=== PATIENT | female | born 1955 | race Caucasian/White ===

== ENCOUNTER 2018-03-23 18:09 | Observation (INO) | payer MEDICARE, BC ==
[2018-03-23] MEDS ORDERED: Aspirin 81 mg CHEW TAB* 81 MG TAB.CHEW PO ONE (18:51)
[2018-03-23] MEDS ORDERED: Nitroglycerin TAB 0.4 MG* 0.4 MG TAB SL ONE (18:51)
[2018-03-23 18:54] LABS: ABS Basophils 0 10^3/ul (0-0.2); ABS Eosinophils 0.1 10^3/ul (0-0.6); ABS Lymphocytes 1.9 10^3/ul (1.0-4.8); ABS Monocytes 0.5 10^3/ul (0-0.8); ABS Neutrophils 3.8 10^3/ul (1.5-7.7); ABS Nucleated RBC 0 10^3/ul; Hematocrit 40 % (35-47); Hemoglobin 13.6 g/dl (12.0-16.0); Lymphocyte % 29.6 % (25-47); Mean Corpuscular HGB Conc 35 g/dl (31-36); Mean Corpuscular Hemoglobin 33 pg (27-31); Mean Corpuscular Volume 96 fL (80-97); Mean Platelet Volume 9.5 um3 (7.4-10.4); Nucleated Red Blood Cells % 0.2; Platelet Count 174 10^3/ul (150-450); Red Blood Count 4.12 10^6/ul (4.0-5.4); Red Cell Distribution Width 13 % (10.5-15); White Blood Count 6.3 10^3/ul (3.5-10.8)
[2018-03-23 19:17] LABS: EGFR Non-African American 69.9 (>60)
--- NOTE | 2018-03-23 19:21 | RAD ---
Indication: Chest pain shortness of breath, back pain, headache. Comparison: June 27, 2014 Technique: Upright AP 1904 hours Report: Clear lungs and pleural spaces. Negative for pneumothorax. The heart, pulmonary vasculature, and mediastinal contours are unremarkable. Negative for free air beneath the diaphragm. Unremarkable osseous structures and soft tissue contours. IMPRESSION: No evidence for acute intrathoracic disease.
[2018-03-23] MEDS ORDERED: Nitroglycerin 2% OINT* 1 GM PAK TOPICAL ONE (20:11)
[2018-03-23] MEDS ORDERED: Ondansetron INJ* 2 MG/ML VIAL IV PRN (20:56)
[2018-03-23] MEDS ORDERED: Ondansetron ODT TAB* 4 MG PO PRN (20:56)
[2018-03-23] MEDS ORDERED: Acetaminophen TAB* 325 MG PO PRN (20:56)
[2018-03-23] MEDS ORDERED: traZODone TAB* 100 MG PO SCH (21:00)
[2018-03-23] MEDS ORDERED: NS 0.9% 1000 ML* 1,000 ML IV SCH (21:00)
[2018-03-23] MEDS: Al Hydrox/Mg Hydrox/Simet LIQ* 30 ML UDC PO ONE ×2 (22:06→22:16)
[2018-03-23] MEDS: Lidocaine 2% VISCOUS* 15 ML UDC PO ONE ×2 (22:06→22:16)
[2018-03-23] MEDS: Pregabalin CAP(*) 50 MG PO SCH (22:16)
--- NOTE | 2018-03-23 22:25 | HP ---
CC: Dr. Carrero * HISTORY AND PHYSICAL: DATE OF ADMISSION: 03/23/18 PRIMARY CARE PROVIDER: Dr. Carrero. ATTENDING PHYSICIAN WHILE IN THE HOSPITAL: Kellie Andrade DO *(report dictated by Marlon Caceres NP). CHIEF COMPLAINT: Chest pain. HISTORY OF PRESENT ILLNESS: Ms. Gorman is a 62-year-old female patient who carries a history of fibromyalgia and depression along with tachycardia, who comes into the ER today stating that she had an episode in the last couple of days of intermittent chest discomfort described as pressure, tightness in the chest, also described as indigestion and burning. She states she just felt full in the last couple, particularly all day today. She had intermittent chest pain, it was non- exertional. It was described as epigastric discomfort and indigestion. She states that she was concerned that the discomfort was not getting any better. She did admit to having associated shortness of breath and nausea with this. No diaphoresis. She denied having any lower abdominal pain. No fevers or chills. No recent travel. No leg tenderness or swelling. No URI type symptoms. No recent coughing. She decided to come into the emergency department today because the pain was persisting. She was evaluated in the ED, her pain went away with nitro and aspirin and because of these findings, we were asked to evaluate for admission. PAST MEDICAL HISTORY: Significant for: 1. Fibromyalgia. 2. Tachycardia. PAST SURGICAL HISTORY: 1. The patient has had a . 2. Hysterectomy. 3. Cardiac ablation. HOME MEDICATIONS: According to her recall includes: 1. Lyrica 150 mg p.o. b.i.d. 2. Multivitamin 1 tablet daily. 3. Estradiol 1 mg daily. 4. Calcium carbonate 1 tablet p.o. daily. 5. Vitamin D 1 capsule p.o. daily. 6. Trazodone 100 mg p.o. at bedtime. 7. Zoloft 150 mg p.o. daily. ALLERGIES TO MEDICATIONS: Include no known drug allergies. FAMILY HISTORY: Mother is still alive and is healthy. Father had a history of stroke. SOCIAL HISTORY: She does not smoke. She does not drink. She states her surrogate decision maker is her . REVIEW OF SYSTEMS: There is no documented fever. She denied having any significant weight. There is no double vision. There is no area of discharge. Denies having any rhinorrhea. There is no sore throat. No thyroid enlargement. There is chest pain per my HPI. There was no orthopnea. There was no nocturnal dyspnea. There was no abdominal pain. She does have epigastric pain. No dysuria. No frequency. No seizure. No loss of consciousness. No pruritus and no skin ulceration. Review of 14 systems completed, all others negative. PHYSICAL EXAMINATION GENERAL: At this time, Ms. Gorman is a 62-year-old male patient. She is sitting in the ED stretcher. She does not appear to be in any acute distress. VITAL SIGNS: Blood pressure 139/73, pulse 66, respirations 16, O2 sat 99%, temperature 97.1. HEENT: Head: Atraumatic, normocephalic. Eyes: EOMs intact. Sclerae anicteric and not pale. Throat: Oral mucosa appears to be moist. No oropharyngeal erythema. NECK: Supple. LUNGS: Clear to auscultation bilaterally. No wheezes, rales or rhonchi. HEART: Sounds S1, S2. Regular rate and rhythm. No murmurs, rubs or gallops. ABDOMEN: Soft, it was flat, nontender. Bowel sounds were present. EXTREMITIES: Pulses were 2+ throughout. She is moving all 4 extremities with 5 /5 strength. NEUROLOGIC: The patient is awake, she is alert, she is oriented x3. Tongue midline. Senior [address] Engineer were equal, had no gross focal deficits. SKIN: Intact. DIAGNOSTIC STUDIES/LAB DATA: WBC 6.3, RBC of 4.12, hemoglobin of 13.6, hematocrit of 40, platelet count of 174. D-dimer less than 200. Sodium was 137 , potassium was 3.6, chloride of 103, bicarb of 26, BUN 21, creatinine of 0.83, glucose 159, lactic 1.6, calcium 9.1. Total bili 0.4, AST 15, ALT 12, alk phos 64. Troponin of 0, albumin is 3.8. The patient did have a chest x-ray obtained today, which revealed no active cardiopulmonary disease. There was an EKG obtained today, which showed a normal sinus rhythm, rate of 69 , no ST elevations or T-wave inversions. Old medical records reviewed. ASSESSMENT AND PLAN: Ms. Gorman is a 62-year-old female patient coming into the ED today with complaints of chest discomfort. We are asked to evaluate for admission. She will be admitted under observation status: 1. Chest pain. At this point, she does have some atypical tendencies, but I am concerned that it is persisting, it is coming and going, so my plan is to go ahead and admit her, cycle her troponins. We will get place her on telemetry. Continue baby aspirin, check stress test, echo, lipid A1c in the morning and continue to follow. I am also going to give her GI cocktail. 2. Fibromyalgia. Continue meds as prescribed. 3. History of tachycardia. She is in the sinus rhythm now. We will monitor. She will be on telemetry. 4. Depression. Continue meds as prescribed. 5. DVT prophylaxis. I have ordered SCDs. 6. Fluids, electrolytes, nutrition. Heart healthy diet and n.p.o. after midnight. 7. Code status. Full code. TIME SPENT: Time spent on admission 60 minutes, greater than half of the time was spent [id number] with the patient obtaining my history and physical, other half time spent going over the plan of care with the patient and implementing plan of care. I did discuss the plan of care with my attending, Dr. Andrade, she is in agreement. MARLON CACERES, SANDY [id number]/[facility] #: [id number] MTDD
[2018-03-24 06:21] LABS: ABS Basophils 0 10^3/ul (0-0.2); ABS Eosinophils 0.1 10^3/ul (0-0.6); ABS Lymphocytes 2.3 10^3/ul (1.0-4.8); ABS Monocytes 0.4 10^3/ul (0-0.8); ABS Neutrophils 2.4 10^3/ul (1.5-7.7); ABS Nucleated RBC 0 10^3/ul; Eosinophil % 2.3 % (0-6); Hematocrit 36 % (35-47); Hemoglobin 12.3 g/dl (12.0-16.0); Lymphocyte % 43.7 % (25-47); Mean Corpuscular HGB Conc 34 g/dl (31-36); Mean Corpuscular Hemoglobin 33 pg (27-31); Mean Corpuscular Volume 95 fL (80-97); Mean Platelet Volume 9.2 um3 (7.4-10.4); Nucleated Red Blood Cells % 0.1; Platelet Count 169 10^3/ul (150-450); Red Blood Count 3.73 10^6/ul (4.0-5.4); Red Cell Distribution Width 13 % (10.5-15); White Blood Count 5.2 10^3/ul (3.5-10.8)
[2018-03-24 06:36] LABS: EGFR Non-African American 71.9 (>60)
[2018-03-24] MEDS ORDERED: Aspirin 81 mg CHEW TAB* 81 MG TAB.CHEW PO SCH (09:00)
[2018-03-24] MEDS ORDERED: Sertraline* 50 MG TAB PO SCH (09:00)
[2018-03-24 09:39] VITALS: BP 121/64
[2018-03-24] MEDS ORDERED: Regadenoson* 0.4 MG/5 ML SYRINGE ONE (09:50)
--- NOTE | 2018-03-24 10:06 | RAD ---
Edited for charges. Indication: Chest pain. Myocardial perfusion scan was performed less than one day protocol. 10.6 mCi of technetium 99m tetrofosmin was injected for rest portion of the study. Pharmacological stress was applied and 25.7 mCi of technetium 99m tetrofosmin was then injected for the stress portion of the changes. There is homogeneous distribution of the radiotracer throughout the left ventricle. No definite reversible perfusion defects are identified. The ejection fraction at stress is 68%. Evaluation of wall motion demonstrates no evidence of focal wall motion abnormality. IMPRESSION: No evidence of fixed or reversible perfusion defect is identified. ASSESSMENT: Low risk Based on imaging criteria from ACC/AHA 2002 Guideline Update for the Management of Patients With Chronic Stable Angina Table 23. Noninvasive Risk Stratification. MTDD
[2018-03-24] MEDS: Pregabalin CAP(*) 50 MG PO SCH (11:31)
--- NOTE | 2018-03-24 13:22 | DS ---
CC: Dr. Carrero * DISCHARGE SUMMARY: DATE OF ADMISSION: 03/23/18 DATE OF DISCHARGE: 03/24/18 PROVIDER: Elizabeth Paul NP ATTENDING PHYSICIAN: Dr. Simental * (report dictated by Elizabeth Paul NP). PRIMARY CARE PROVIDER: Dr. Carrero. DISCHARGE DIAGNOSIS: Chest pain, unknown etiology. SECONDARY DIAGNOSES: 1. Fibromyalgia. 2. History of tachycardia versus atrial fibrillation, status post ablation approximately 20 to 25 years ago. DISCHARGE MEDICATIONS: 1. Lyrica 150 mg p.o. b.i.d. 2. Multivitamin 1 tab p.o. daily. 3. Estradiol 1 mg p.o. daily. 4. Calcium carbonate 1 tablet p.o. daily. 5. Vitamin D 1 capsule p.o. daily. 6. Trazodone 100 mg p.o. at bedtime. 7. Zoloft 150 mg p.o. daily. New medications on discharge: Aspirin 81 mg p.o. daily. HISTORY OF PRESENT ILLNESS AND HOSPITAL COURSE: Please see history and physical by Austin Caceres NP, for full admission details, but in summary, this is 62-year-old female with a past medical history of AFib versus tachycardia, status post ablation approximately 20 to 25 years ago; fibromyalgia; depression , who presented to the emergency department yesterday on 03/23/18 with complaints of chest discomfort. The patient reported intermittent chest discomfort described as pressure and tightness of the chest with indigestion and burping over the past couple of days. The patient reports that it is non- exertional and it happens at rest. She reports that she exercises regularly and has not had any chest pain during exertion. She does have a significant past medical history for tobacco abuse for approximately 10 years smoking 3 packs of cigarettes a day. It is also noted that she is on estradiol. No family history of cardiac disease. The patient was admitted to the hospitalist service and had 3 negative troponins, all of 0.00. No known EKG changes. The patient was supposed to undergo an exercise stress test this morning; however, she was converted to a chemical stress test as she did not have appropriate shoes for the exercise portion. The test was performed by tavern keeper, Dr. Donovan, who reported he did note a transient T-wave change with administration of regadenoson noting there are multiple transient T-wave inversions noted in V3 , V4, subtly in V5, reporting that the changes reverted back to baseline within 3 minutes after the regadenoson administration. The cardiac nuclear portion showed no evidence of fixed or irreversible perfusion defect was identified, placing her at low risk based on the imaging criteria from ACC/AHA 2002 guideline. I did speak with Dr. Donovan, who stated that it is unclear if the transient T-wave changes were significant due to this chemical portion and she would have been better served with an exercise stress test. However, the patient does exercise on a regular basis and has no exertional chest pain. Recommendation was to possibly start low-dose aspirin and low-dose beta breanne and the patient can follow up with her primary. If she were to experience any further concerning symptoms, she should have a followup with tavern keeper and possibly undergo a cardiac catheterization at that time; however, it is not warranted at this time. I did discuss with the patient about starting a daily baby aspirin, which she is in agreement to; however, she reports that she does not tolerate beta blockers and does not want to start a low-dose beta breanne at this time if it is just for prevention. The plan will be to follow up with her primary care doctor, Dr. Carrero, this week and it will be determined if she should follow up with the [facility] tavern keeper as an outpatient. I discussed with the patient if she has any further concerning symptoms, she will return to emergency department. She has been ambulating around the unit walking briskly in the hallways without any further symptoms and she is stable for discharge to home. REVIEW OF SYSTEMS: A 14-point review of systems was performed. All the pertinent positives and negatives are mentioned in the history of present illness. Otherwise are negative. At this point, the patient has no complaints. PHYSICAL EXAMINATION: Vital Signs: Temperature 97.6, heart rate 57, respirations 16, O2 sat 97% on room air, blood pressure 121/64. General Appearance: A 62-year- old obese female, standing up in her room, alert and oriented x3, in no acute distress, very pleasant, good historian. HEENT: Head is normocephalic, atraumatic. Neck is supple. No JVD noted. Cardiac: S1 and S2. Regular rate and rhythm. No murmurs, rubs, or gallops appreciated. No lower extremity edema noted. Lungs: Clear to auscultation bilaterally. Good aeration throughout. Abdomen: Soft, obese, nontender. Normal bowel sounds throughout. Extremities: Moves all extremities. Strength is 5/5 throughout. Steady gait. Neuro: Alert and oriented x3. No focal deficits noted. DISCHARGE PLAN: The patient will be discharged to home. She is to follow up with her primary care provider, Dr. Carrero, this week. If she has any further concerning symptoms, she is to return to the emergency department. She is instructed to start a daily baby aspirin 81 mg. Again, it was suggested the patient start a low-dose beta breanne, but she at this time is refusing until further followup with her primary care provider and/or outpatient Cardiology. She has been symptom free and is stable for discharge to home. The patient's hemoglobin A1c is 5.6, she did have a fasting lipid profile this morning with triglycerides of 78, cholesterol of 194, LDL 132, and HDL 46. I did discuss with the patient she should follow up with primary care provider as other than her LDL and borderline cholesterol, it is possible with diet changes and continued exercise that these numbers could improve; however, if not, she should consider starting a statin. As well, I do note that she is on estradiol oral and did discuss with her the fact that estradiol patch reduces the cardiac and stroke risk as it avoids the first pass in the liver. I encouraged her to discuss this with her primary care provider. TIME SPENT: Approximately 60 minutes was spent on this discharge. ELIZABETH PAUL NP [id number]/[facility] #: [id number] ARELIS
== END 2018-03-24 13:30 | disposition home or self-care (01) ==
LOC: ED 18:09 → MEDTELE 20:54
PROVIDERS: ADMIT Hospitalist; ATTEND Student in an Organized Health Care Education/Training Program
DX: R07.9 Chest pain, unspecified (principal); M79.7 Fibromyalgia; R00.0 Tachycardia, unspecified; Z90.710 Acquired absence of both cervix and uterus
CPT/HCPCS: 36415; 71045; 78452; 80048; 80053; 80061; 83036; 83605; 84484; 85025; 85379; 93005; 93017; 96374; 99284; A9270-GY; A9502; J2785

== ENCOUNTER 2019-05-14 21:43 | Emergency (ER) | payer MEDICARE, BC ==
[2019-05-14] MEDS ORDERED: oxyCODONE/Acetamin 5/325 MG* TAB PO ONE (22:39)
[2019-05-14] MEDS ORDERED: Ketorolac INJ* 30 MG/ML 1 ML VIAL IM ONE (22:39)
[2019-05-14 23:03] LABS: ABS Eosinophils 0.1 10^3/ul (0-0.6); ABS Lymphocytes 1.4 10^3/ul (1.0-4.8); ABS Monocytes 0.7 10^3/ul (0-0.8); ABS Neutrophils 7.6 10^3/ul (1.5-7.7); Eosinophil % 0.8 %; Hematocrit 38 % (35-47); Hemoglobin 13.4 g/dL (12.0-16.0); Lymphocyte % 13.9 %; Mean Corpuscular HGB Conc 35 g/dL (31-36); Mean Corpuscular Hemoglobin 33 pg (27-31); Mean Corpuscular Volume 95 fL (80-97); Mean Platelet Volume 8.8 fL (7.4-10.4); Platelet Count 193 10^3/uL (150-450); Red Blood Count 4.05 10^6 /uL (3.70-4.87); Red Cell Distribution Width 13 % (10-15); White Blood Count 9.7 10^3/uL (3.5-10.8)
[2019-05-14 23:21] LABS: Albumin/Globulin Ratio 1.2 (1-3); BUN/Creatinine Ratio 16.5 (8-20); C Reactive Protein 109.77 mg/L (<8.01); Calcium 9.5 mg/dL (8.6-10.3); EGFR Non-African American 67.8 (>60); Globulin 3.4 g/dL (2-4); Magnesium 1.9 mg/dL (1.9-2.7); Potassium 4.3 mmol/L (3.5-5.0); Total Bilirubin 0.5 mg/dL (0.2-1.0); Total Protein 7.4 g/dL (6.4-8.9)
--- NOTE | 2019-05-14 23:21 | ED ---
Lower Extremity - HPI Summary HPI Summary: 63-year-old female presents with right thigh pain for the past week. She states that a week ago she was going a stress test and she started having increasing pain in her right thigh. She is able to complete the stress test and has no cardiac issues but now is having right thigh pain. She states that she is unable to place weight on the area. States pain has been taking worse. No numbness or tingling. No weakness. No back pain. No chest pain or shortness breath. - History of Current Complaint Chief Complaint: EDExtremityLower Stated Complaint: LEG PAIN PER EMS Time Seen by Provider: 05/14/19 22:25 Pain Intensity: 10 - Allergies/Home Medications Allergies/Adverse Reactions: Allergies Allergy/AdvReac Type Severity Reaction Status Date / Time No Known Allergies Allergy Verified 06/27/14 14:34 PMH/Surg Hx/FS Hx/Imm Hx Endocrine/Hematology History: Denies: Hx Diabetes Cardiovascular History: Reports: Hx Angina Denies: Hx Hypertension, Hx Pacemaker/ICD Comment Only: Other Cardiovascular Problems/Disorders - Ablation r/t tachycardia Respiratory History: Denies: Hx Asthma History: Denies: Hx Renal Disease Musculoskeletal History: Reports: Hx Fibromyalgia, Other Musculoskeletal History - Fibromyalgia Sensory History: Reports: Hx Contacts or Glasses Denies: Hx Hearing Aid Opthamlomology History: Reports: Hx Contacts or Glasses Psychiatric History: Denies: Hx Panic Disorder - Surgical History Surgery Procedure, Year, and Place: C SECTION X 3; HEART ABLATION; HYSTERECTOMY ALL WERE AT LEAST 15 YRS AGO - Immunization History Immunizations Up to Date: Yes Infectious Disease History: No Infectious Disease History: Denies: Traveled Outside the [place] in Last 30 Days - Family History Known Family History: Negative: Cardiac Disease - Social History Alcohol Use: None Substance Use Type: Reports: None Smoking Status (MU): Former Smoker Type: Cigarettes Amount Used/How Often: 3 PACK DAILY Length of Time of Smoking/Using Tobacco: 12 YEARS Have You Smoked in the Last Year: No Review of Systems Negative: Fever Negative: Chest Pain Negative: Shortness Of Breath Positive: Myalgia - right thigh pain All Other Systems Reviewed And Are Negative: Yes Physical Exam Triage Information Reviewed: Yes Vital Signs On Initial Exam: Initial Vitals Temp Pulse Resp BP Pulse Ox 99.1 F 81 18 147/79 96 05/14/19 22:08 05/14/19 22:08 05/14/19 22:08 05/14/19 22:08 05/14/19 22:08 Vital Signs Reviewed: Yes Appearance: Positive: Well-Appearing Skin: Positive: Warm, Dry Head/Face: Positive: Normal Head/Face Inspection Eyes: Positive: Normal, Conjunctiva Clear ENT: Positive: Pharynx normal Respiratory/Lung Sounds: Positive: Clear to Auscultation, Breath Sounds Present Cardiovascular: Positive: Normal, RRR Musculoskeletal: Positive: Limited @ - right leg, Other - tenderness right thigh especially lateral aspect of thigh, nontender hip, good pulses, sensation grossly intact, soft compartments Neurological: Positive: Normal Psychiatric: Positive: Normal Diagnostics - Vital Signs Vital Signs Temp Pulse Resp BP Pulse Ox 05/14/19 22:58 20 05/14/19 22:08 99.1 F 81 18 147/79 96 - Laboratory Lab Results: Lab Results 05/14/19 Range/Units 22:55 WBC 9.7 (3.5-10.8) 10^3/uL RBC 4.05 (3.70-4.87) 10^6 /uL Hgb 13.4 (12.0-16.0) g/dL Hct 38 (35-47) % MCV 95 (80-97) fL MCH 33 H (27-31) pg MCHC 35 (31-36) g/dL RDW 13 (10-15) % Plt Count 193 (150-450) 10^3/uL MPV 8.8 (7.4-10.4) fL Neut % (Auto) 77.8 % Lymph % (Auto) 13.9 % Crook % (Auto) 7.1 % Eos % (Auto) 0.8 % Baso % (Auto) 0.4 % Absolute Neuts (auto) 7.6 (1.5-7.7) 10^3/ul Absolute Lymphs (auto) 1.4 (1.0-4.8) 10^3/ul Absolute Monos (auto) 0.7 (0-0.8) 10^3/ul Absolute Eos (auto) 0.1 (0-0.6) 10^3/ul Absolute Basos (auto) 0.0 (0-0.2) 10^3/ul Absolute Nucleated RBC 0.0 10^3/ul Nucleated RBC % 0.0 Result Diagrams: 05/14/19 22:55 05/14/19 22:55 Lab Statement: Any lab studies that have been ordered have been reviewed, and results considered in the medical decision making process. - Radiology hip, femur Radiology Interpretation Completed By: ED Physician Summary of Radiographic Findings: no fracture - Ultrasound No standard instances Ultrasound Interpretation Completed By: Radiologist Summary of Ultrasound Findings: IMPRESSION: No DVT in the right lower extremity veins. Right peroneal vein not visualized. Re-Evaluation - Re-Evaluation First Eval Re-Evaluation Time: 23:35 Comment: pain improved Second Eval Re-Evaluation Time: 12:15 Comment: able to ambulate with walker Lower Extremity Course/Dx - Course Course Of Treatment: 63-year-old female presents with right thigh pain for the past week. She states that a week ago she was going a stress test and she started having increasing pain in her right thigh. She is able to complete the stress test and has no cardiac issues but now is having right thigh pain. She states that she is unable to place weight on the area. States pain has been taking worse. No numbness or tingling. No weakness. No back pain. No chest pain or shortness breath. On exam tenderness of right thigh. Neurovascular intact. Ultrasound normal. no rash. White blood cell count normal. CK normal. xray normal. discussed likely is muscle strain. will give short course of pain medication so can ambulate. will have follow up with ortho. patient understand and agrees with plan. - Diagnoses Differential Diagnosis/HQI/PQRI: Positive: DVT, Fracture (Closed), Sprain Provider Diagnoses: Right thigh pain Discharge - Sign-Out/Discharge Documenting (check all that apply): Patient Departure Patient Received Moderate/Deep Sedation with Procedure: No - Discharge Plan Condition: Good Disposition: HOME Prescriptions: oxyCODONE/Acetamin 5/325 MG* [Percocet 5/325 TAB*] 1 tab PO Q6H PRN #16 tab MDD 4 PRN Reason: Pain Patient Education Materials: Leg Pain (ED) Referrals: Tobias Carrero MD [Primary Care Provider] - Mirella Valenzuela MD [Medical Doctor] - Additional Instructions: Take Tylenol or ibuprofen every 6 hours as needed for pain, take percocet for break through pain every 6 hours Apply ice, rest, elevate try to move as much as possible Follow up with ortho Return to ED if develop any new or worsening symptoms - Billing Disposition and Condition Condition: GOOD Disposition: Home
[2019-05-15 00:30] VITALS: BP 131/63
== END 2019-05-15 00:25 | disposition home or self-care (01) ==
LOC: ED 21:43
DX: M79.651 Pain in right thigh (principal); M16.0 Bilateral primary osteoarthritis of hip; Z87.891 Personal history of nicotine dependence
CPT/HCPCS: 36415; 80053; 82550; 83735; 85025; 86140; 96372; 99283; A9270-GY; J1885; Q9967

== ENCOUNTER 2019-08-05 08:05 | Day surgery (SDC) | payer MEDICARE, BC ==
[~2019-08-05 08:05] MED LIST: Buffered Lidocaine 1% SYRIN* 1 ML/SYRINGE INTRADERM ONE
[2019-08-05] MEDS ORDERED: Midazolam* 1 MG/ML 2 ML VIAL (2 MG) ONE (10:12)
--- NOTE | 2019-08-05 11:27 | OP ---
OPERATIVE NOTE: DATE OF OPERATION: 08/05/19 DATE OF : 57 SURGEON: Jesus Mccracken M.D. PREOPERATIVE DIAGNOSIS: Cataract, left eye. POSTOPERATIVE DIAGNOSIS: Cataract, left eye. OPERATIVE PROCEDURE: Extracapsular cataract extraction with IOL, left eye. PROCEDURE: The patient was brought to the operating room after being given 1/2% Alcaine with epineph rine drops in the preoperative area. The eye was prepped and draped in the usual sterile fashion. S terile drape and eyelid speculum were placed. Again, topical 1/2% Alcaine with epinephrine was given . A paracentesis incision was made at the 3 o'clock position with the No.75 blade. Clear cornea inc ision 2.2 x 2.2-mm was created at the 6 o'clock position starting at the anterior limbus using the 2. 2-mm keratome. The anterior chamber was irrigated with 0.4 mL of 1% non-preservative intracameral li docaine and filled with DisCoVisc. A capsulorrhexis was completed using the cystotome and the Utrata forceps. Hydrodissection was performed with balanced salt solution. The lens nucleus was removed wi th the Phacoemulsification handpiece without incident. Cortex was removed with the irrigation-aspira tion handpiece. The capsular bag was re-inflated using DisCoVisc and an [id number] implant was insert ed with the shooter. The irrigation-aspiration handpiece was used to remove all residual DisCoVisc. The eye was refilled with balanced salt solution and the wound checked and found to be watertight. Topical Maxitrol drops were given. [id number]/[facility] #: [id number]
[2019-08-05 11:28] VITALS: BP 143/71
[2019-08-05] MEDS ORDERED: Phenylephrine OPHTH SOL 2.5%* 2 ML ONE (12:21)
[2019-08-05] MEDS ORDERED: Lidocaine 2% w/ EPI 1:200,000* 20 ML SDV VIAL ONE (12:21)
[2019-08-05] MEDS ORDERED: Ketorolac 0.5% OPHTH (NF) 0.5 % 5 ML BTL ONE (12:21)
[2019-08-05] MEDS ORDERED: acetaZOLAMIDE TAB* 250 MG ONE (12:21)
[2019-08-05] MEDS ORDERED: Povidone Iodine 5% OPTH* 30 ML BTL ONE (12:21)
[2019-08-05] MEDS ORDERED: Cyclopentolate 1% OPTH.SOL* 2 ML BTL ONE (12:21)
[2019-08-05] MEDS ORDERED: Proparacaine 0.5% OPHTH.SOL* 15 ML BTL ONE (12:21)
[2019-08-05] MEDS ORDERED: Lidocaine 1% MPF ** 5 ML VIAL ONE (12:21)
[2019-08-05] MEDS ORDERED: Neomycin/Polymy/Dex OPTH.SUSP* MAXITROL 0.1% 5 ML ONE (12:21)
== END 2019-08-05 10:51 | disposition home or self-care (01) ==
LOC: OREAST 08:05
PROVIDERS: ATTEND Specialist
DX: H25.12 Age-related nuclear cataract, left eye (principal); H04.123 Dry eye syndrome of bilateral lacrimal glands; E78.5 Hyperlipidemia, unspecified; K21.9 Gastro-esophageal reflux disease without esophagitis; F41.8 Other specified anxiety disorders; M79.7 Fibromyalgia; M85.80 Other specified disorders of bone density and structure, unspecified site
CPT/HCPCS: A9270-GY; J2250; V2632

== ENCOUNTER 2019-08-12 09:52 | Day surgery (SDC) | payer MEDICARE, BC ==
[2019-08-12] MEDS ORDERED: Lidocaine 2% w/ EPI 1:200,000* 20 ML SDV VIAL ONE (10:43)
[2019-08-12] MEDS ORDERED: Lidocaine 1% MPF ** 5 ML VIAL ONE (10:43)
[2019-08-12] MEDS ORDERED: acetaZOLAMIDE TAB* 250 MG ONE (10:43)
[2019-08-12] MEDS ORDERED: Povidone Iodine 5% OPTH* 30 ML BTL ONE (10:43)
[2019-08-12] MEDS ORDERED: Neomycin/Polymy/Dex OPTH.SUSP* MAXITROL 0.1% 5 ML ONE (10:43)
[2019-08-12] MEDS ORDERED: Phenylephrine OPHTH SOL 2.5%* 2 ML ONE (10:43)
[2019-08-12] MEDS ORDERED: Ketorolac 0.5% OPHTH (NF) 0.5 % 5 ML BTL ONE (10:43)
[2019-08-12] MEDS ORDERED: Cyclopentolate 1% OPTH.SOL* 2 ML BTL ONE (10:43)
[2019-08-12] MEDS ORDERED: Proparacaine 0.5% OPHTH.SOL* 15 ML BTL ONE (10:44)
[2019-08-12] MEDS ORDERED: Midazolam* 1 MG/ML 2 ML VIAL (2 MG) ONE ×2 (12:28→12:40)
[2019-08-12 13:03] VITALS: BP 137/67
--- NOTE | 2019-08-12 17:11 | OP ---
DATE OF OPERATION: 08/12/19 - [facility] DATE OF : 57 SURGEON: Jesus Mccracken MD PREOPERATIVE DIAGNOSIS: Cataract right eye. POSTOPERATIVE DIAGNOSIS: Cataract right eye. OPERATIVE PROCEDURE: Extracapsular cataract extraction with intraocular lens implant right eye. DESCRIPTION OF PROCEDURE: The patient was brought to the operating room after being given 1/2% Alcaine with epinephrine drops in the preoperative area. The eye was prepped and draped in the usual sterile fashion. Sterile drape and eyelid speculum were placed. Again, topical 1/2% Alcaine with epinephrine was given. A paracentesis incision was made at the 9 o'clock position with the No.75 blade. Clear cornea incision 2.2 x 2.2-mm was created at the 6 o'clock position starting at the anterior limbus using the 2.2-mm keratome. The anterior chamber was irrigated with 0.4 mL of 1% non-preservative intracameral lidocaine and filled with DisCoVisc. A capsulorrhexis was completed using the cystotome and the Utrata forceps. Hydrodissection was performed with balanced salt solution. The lens nucleus was removed with the Phacoemulsification handpiece without incident. Cortex was removed with the irrigation-aspiration handpiece. The capsular bag was re-inflated using DisCoVisc and an [id number] 18.5 implant was inserted with the shooter. The irrigation-aspiration handpiece was used to remove all residual DisCoVisc. The eye was refilled with balanced salt solution and the wound checked and found to be watertight. Topical Maxitrol drops were given. [id number]/[facility] #: [id number] [facility]
== END 2019-08-12 13:17 | disposition home or self-care (01) ==
LOC: OREAST 09:52
PROVIDERS: ATTEND Specialist
DX: H25.11 Age-related nuclear cataract, right eye (principal); H04.123 Dry eye syndrome of bilateral lacrimal glands; E78.5 Hyperlipidemia, unspecified; K21.9 Gastro-esophageal reflux disease without esophagitis; F41.8 Other specified anxiety disorders; M79.7 Fibromyalgia; M85.80 Other specified disorders of bone density and structure, unspecified site
CPT/HCPCS: A9270-GY; J2250; V2632